=== PATIENT | male | born 1950 | race Caucasian/White ===

== ENCOUNTER 2023-05-28 14:27 | Outpatient (REF) | payer MEDICARE, OTHER, SELFPAY ==
[2023-05-28 19:10] LABS: Alanine Aminotransferase 9 U/L (0-40); Albumin Level 4.3 g/dL (3.5-5.0); Alkaline Phosphatase 77 U/L (39-117); Anion Gap 15 (12-20); Aspartate Amino Transferase 16 U/L (5-37); Bilirubin Direct 0.2 mg/dL (0.0-0.5); Bilirubin Total 0.8 mg/dL (0.0-1.0); Blood Urea Nitrogen 17 mg/dL (9-16); Calcium 9.3 mg/dL (8.4-10.2); Carbon Dioxide 23 mmol/L (22-29); Chloride 107 mmol/L (96-108); Cholesterol 198 mg/dL (<200); Estimated Glomerular Filt Rate > 60; Glucose Random 63 mg/dL (60-115); HDL Cholesterol 57 mg/dL (>40); LDL Cholesterol Calculated 129 mg/dL (<100); Potassium 3.8 mmol/L (3.3-5.1); Sodium 141 mmol/L (135-145); Total Protein 7.2 g/dL (6.5-8.0); Triglycerides 62 mg/dL (<150)
[2023-05-28 19:18] LABS: Thyroid Stimulating Hormone 1.42 uIU/mL (0.32-4.0)
[2023-06-02 13:28] LABS: HIV RNA PCR Qn Copies Not Detected Copies/mL; HIV RNA PCR Qn Log Copies Not Detected Log cps/mL
== END 2023-05-28 14:28 | disposition home or self-care (01) ==
LOC: HO.CHCLDS 14:27
PROVIDERS: Visit Provider Internal Medicine
DX: Z00.00 Encounter for general adult medical examination without abnormal findings (principal); J02.8 Acute pharyngitis due to other specified organisms
CPT/HCPCS: 36415; 80048; 80061; 80076; 84443; 87536; 87900

== ENCOUNTER 2024-05-31 15:39 | Outpatient (REF) | payer MEDICARE, OTHER, SELFPAY ==
[2024-05-31 17:56] LABS: MANUAL DIFF FLAG NO
[2024-05-31 18:19] LABS: Basophils Absolute Auto 0.1 X10*3/uL (0.0-0.2); Basophils Percent Auto 1.3 % (0-2); Eosinophils Absolute Auto 0.2 X10*3/uL (0.0-0.4); Eosinophils Percent Auto 3.4 % (0-4); Hematocrit 38.1 % (42.0-52.0); Hemoglobin 12.8 g/dl (14.0-18.0); Imm Gran Abs Auto 0.02 X10*3/uL (0.00-0.03); Imm Gran Pct Auto 0.4 % (0.0-0.4); Lymphocytes Absolute Auto 1.5 X10*3/uL (1.2-4.9); Lymphocytes Percent Auto 27.5 % (20-40); Mean Corpuscular HGB Conc 33.6 g/dl (31.0-36.0); Mean Corpuscular Hemoglobin 32.1 pg (27.0-33.0); Mean Corpuscular Volume 95.5 fL (80.0-98.0); Mean Platelet Volume 11.8 fL (9.4-12.4); Monocytes Absolute Auto 0.4 X10*3/uL (0.1-1.2); Monocytes Percent Auto 7.7 % (2-11); Neutrophils Absolute Auto 3.3 x10*3/uL (2.0-8.3); Neutrophils Percent Auto 59.7 % (45-73); Platelet Count 218 X10*3/uL (160-400); Red Blood Count 3.99 X10*6/uL (4.60-5.80); Red Cell Distribution Width 13.2 % (11.0-16.0); White Blood Count 5.6 X10*3/uL (4.8-10.8)
[2024-06-01 04:28] LABS: HIV AB/AG Nonreactive (Nonreactive); HIV Num 1 0.06 S/CO (0.00-0.99)
== END 2024-05-31 15:40 | disposition home or self-care (01) ==
LOC: HO.CHCLDS 15:39
PROVIDERS: Visit Provider Internal Medicine
DX: R63.4 Abnormal weight loss (principal)
CPT/HCPCS: 36415; 84443; 85025; 87389

== ENCOUNTER 2024-07-13 13:37 | Outpatient (REF) | payer MEDICARE, OTHER, SELFPAY ==
[2024-07-13 18:03] LABS: Alanine Aminotransferase 10 U/L (0-40); Albumin Level 4.4 g/dL (3.5-5.0); Alkaline Phosphatase 65 U/L (39-117); Anion Gap 12 (12-20); Aspartate Amino Transferase 16 U/L (5-37); Bilirubin Total 0.8 mg/dL (0.0-1.0); Blood Urea Nitrogen 20 mg/dL (9-16); Calcium 9.7 mg/dL (8.4-10.2); Carbon Dioxide 29 mmol/L (22-29); Chloride 104 mmol/L (96-108); Estimated Glomerular Filt Rate > 60; Glucose Random 97 mg/dL (60-115); Potassium 4.3 mmol/L (3.3-5.1); Sodium 141 mmol/L (135-145); Total Protein 7.2 g/dL (6.5-8.0)
[2024-07-14 08:28] LABS: ~HepC Num1 15.37 S/CO (0.00-0.79); ~Hepatitis C Antibody Reactive (Nonreactive)
[2024-07-20 13:29] LABS: HCV Log PCR <1.18 NOT DETECTED Log IU/mL (NOT DETECTED); HepC Viral Load <15 NOT DETECTED IU/mL (NOT DETECTED)
== END 2024-07-13 13:38 | disposition home or self-care (01) ==
LOC: HO.CHCLNP 13:37
PROVIDERS: Visit Provider Internal Medicine
DX: R63.4 Abnormal weight loss (principal); Z95.0 Presence of cardiac pacemaker; R63.0 Anorexia
CPT/HCPCS: 36415; 80053; 86803; 87338; 87522

== ENCOUNTER 2024-11-24 11:20 | Outpatient (REF) | payer MEDICARE, SELFPAY ==
--- OUTSIDE RECORDS SUMMARY | 2024-11-24 12:27 | XMS_ITS | Clinical Summary ---
Author Organization [facility] [place] [address] Care Team Providers Care Agricultural Service Worker Name Role Phone Unavailable Primary Care Provider Unavailabl e Social History Tobacco Use Types Packs/Day Years Used Date Smoking Tobacco: Never Assessed Sex and Gender Information Value Date Recorded Sex Assigned at Not on file Legal Sex Male 2:10 PM EDT Gender Identity Not on file Sexual Orientation Not on file Plan of Treatment Health Maintenance Due Date Last Done Comments DTaP,Tdap,and Td Vaccines (1 - Tdap) 1967 Pneumococcal Vaccine: 50+ Ye ars (1 of 1 - PCV) 1998 Zoster Vaccines (1 of 2) 1998 RSV Immunization Patients 60 + Years Old (1 - 1-dose 75+ series) 2023 COVID-19 Vaccine (2023-2 5 season) 2024 Influenza Vaccine (#1) 2024 Cholesterol Screening (Lipid Panel) 08/29/2024 Depression Screening 08/29/2024 Falls Risk Assessment 08/29/2024 Hepatitis C Screening 08/29/2024 Social Influencers of Health Screening 08/29/2024 HIB Vaccines Aged Out No longer eligi ble based on patient's age to complete this topic HPV Vaccines Aged Out No longer eligi ble based on patient's age to complete this topic Hepatitis A Vaccines Aged Out No long er eligible based on patient's age to complete this topic Hepatitis B Vaccines Aged Out No long er eligible based on patient's age to complete this topic IPV Vaccines Aged Out No longer eligi ble based on patient's age to complete this topic MMR Vaccines Aged Out No longer eligi ble based on patient's age to complete this topic Meningococcal ACWY Vaccine Aged Out N o longer eligible based on patient's age to complete this topic Meningococcal B Vacine Aged Out No lo nger eligible based on patient's age to complete this topic RSV Immunization Patients Un annette 20 months Aged Out No longer eligible b ased on patient's age to complete this topic Varicella Vaccines Aged Out No longer eligible based on patient's age to complete this topic
--- OUTSIDE RECORDS SUMMARY | 2024-11-24 12:27 | XMS_ITS | Encounter Summary ---
Author Organization [employer] Address [address] [facility] 7t [place] [address] Care Team Providers Care Courseware Developer Name Role Phone Tereza Wood MD Primary Care Provider [phone] Encounter Details Date Type Department Care Team (Latest Contact Info) Description 10/26/2024 Travel Social History Tobacco Use Types Packs/Day Years Used Date Smoking Tobacco: Never Smokeless Tobacco: Never Alcohol Use Standard Drinks/Week Comments Never 0 (1 standard drink = 0.6 oz pur e alcohol) Depression Answer Date Recorded Patient Health Questionnaire-9 Score 6 05/29/2024 Patient Health Questionnaire-9 Score 6 05/29/2024 Last PHQ-9: Questionnaire Data Not on file 0 05/29/2024 Housing Stability Answer Date Recorded What is your housing situation today? I have manjinder kaba 10/26/[address] you li ve. Do you have problems with any of the following? None of the above 10/26/2024 Food Insecurity Answer Date Recorded Within the past 12 months, y ou worried that your food would run out before you got money to buy more: Never True 10/26/2024 Within the past 12 months,th e food you bought just didn't last and you didn't have enough money to get more: Never True Transportation Answer Date Recorded In the past 12 months, has l ack of transportation kept you from medical appts, meetings, work or from getting things needed for daily living? No 10/26/2024 Utilities Answer Date Recorded In the past 12 months, has t he electric, gas, oil or water company threatened to shut off services in your home? No 10/26/2024 Depression Answer Date Recorded Patient Health Questionnaire-2 Score 2 05/29/2024 Internet Access Answer Date Recorded Internet Access Q1 Yes 10/26/2024 Internet Access Q2 Not on file 10/26/2024 Sex and Gender Information Value Date Recorded Sex Assigned at Male 08/03/2022 10:28 AM EDT Legal Sex Male 10:28 AM EDT Gender Identity Male 08/03/2022 10:28 AM EDT Sexual Orientation Straight 08/03/2022 10 :28 AM EDT documented as of this encounter Plan of Treatment Not on file documented as of this encounter Visit Diagnoses Not on filedocumented in this encounter Additional Health Concerns Assessment Noted Time PHQ-9 Depression Total Score: 6 05/29/20 24 3:03 PM EDT documented as of this encounter Care Teams Courseware Developer Relationship Specialty Start Date End Date Tereza Wood MD [address] [place] [phone] PCP - General Internal Medicine 06/07/15 documented as of this encounter
--- OUTSIDE RECORDS SUMMARY | 2024-11-24 12:27 | XMS_ITS | Encounter Summary ---
Author Organization [employer] Address [address] [facility] 7 [place] [address] Care Team Providers Care Drop Pit Worker Name Role Phone Tereza Wood MD Primary Care Provider [phone] Encounter Details Date Type Department Care Team ([facility] st Contact Info) Description 07/19/2023 Orders Only [facility] MED & PEDS [address] [place], [place] [phone] Tereza Wood MD [address] [place], [place] [phone] Social History Tobacco Use Types Packs/Day Years Used Date Smoking Tobacco: Never Smokeless Tobacco: Never Depression Answer Date Recorded Patient Health Questionnaire-9 Score 0 04/22/2023 Housing Stability Answer Date Recorded What is your housing situation today? I have manjinder kaba 07/19/[address] you li ve. Do you have problems with any of the following? None of the above 07/19/2023 Food Insecurity Answer Date Recorded Within the past 12 months, y ou worried that your food would run out before you got money to buy more: Never True 07/19/2023 Within the past 12 months,th e food you bought just didn't last and you didn't have enough money to get more: Never True Transportation Answer Date Recorded In the past 12 months, has l ack of transportation kept you from medical appts, meetings, work or from getting things needed for daily living? No 07/19/2023 Utilities Answer Date Recorded In the past 12 months, has t he electric, gas, oil or water company threatened to shut off services in your home? No 07/19/2023 Depression Answer Date Recorded Patient Health Questionnaire-2 Score 0 04/22/2023 Sex and Gender Information Value Date Recorded [...] Assessment Noted Time PHQ-9 Depression Total Score: 0 04/22/20 23 3:45 PM EDT documented as of this encounter Care Teams Drop Pit Worker Relationship Specialty Start Date End Date Tereza Wood MD [address] [place] [phone] PCP - General Internal Medicine 06/07/15 documented as of this encounter
--- OUTSIDE RECORDS SUMMARY | 2024-11-24 12:27 | XMS_ITS | Encounter Summary ---
Author Organization [employer] Address [address] [facility] 7 [place] [address] Care Team Providers Care Counseling Director Name Role Phone Tereza Wood MD Primary Care Provider [phone] Encounter Details Date Type Department Care Team (Late st Contact Info) Description 08/02/2023 Abstract [facility] MEDICINE [address] [place] [address] Tereza Wood MD [address] [place], [place] [phone] Social History Tobacco Use Types Packs/Day Years [...] on file documented as of this encounter Procedures Procedure Name Priority Date/Time Associated Diagnosis Comments COLONOSCOPY Routine 10/24/2015 documented in this encounter Results * Hm Colonoscopy (10/24/2015) Colonoscopy Normal Normal Narrative Tabby Collins - 10/24/2015 Recommended 10 year follow up us Historical Provider HEALTH MAINTENANCE Final Result documented in this encounter Visit Diagnoses Not on filedocumented in this encounter Additional Health Concerns Assessment Noted Time PHQ-9 Depression Total Score: 0 04/22/20 23 3:45 PM EDT documented as of this encounter Care Teams Counseling Director Relationship Specialty Start Date End Date Tereza Wood MD [address] [place] [phone] PCP - General Internal Medicine 06/07/15 documented as of this encounter
--- OUTSIDE RECORDS SUMMARY | 2024-11-24 12:27 | XMS_ITS | Encounter Summary ---
Author Organization [employer] Address [address] [facility] 7t [place] [address] Care Team Providers Care Tile Inspector Name Role Phone Tereza Wood MD Primary Care Provider [phone] Encounter Details Date Type Department Care Team ([facility] st Contact Info) Description 06/06/2024 Orders Only [facility] MED & PEDS [address] [place], [place] [phone] Tereza Wood MD [address] [place] [address] Microcytic anemia (Primary Dx) Social History Tobacco Use Types Packs/Day Years [...] Recorded Patient Health Questionnaire-2 Score 2 05/29/2024 Sex and Gender Information Value Date Recorded Sex Assigned at Male 08/03/2022 10:28 AM EDT Legal Sex Male 10:28 AM EDT Gender Identity Male 08/03/2022 10:28 AM EDT Sexual Orientation Straight 08/03/2022 10 :28 AM EDT documented as of this encounter Plan of Treatment Scheduled Orders Name Type Priority Associated Diagnoses Orde r Schedule Iron And Total Iron Binding Capacity Lab Routine Microcytic anemia Expected: 06/06/2024, Expires: 06/06/2025 Ferritin Lab Routine Microcytic anemia Expected: 06/06/2024, Expires: 06/06/2025 Reticulocyte Count Lab Routine Microcytic anemia Expected: 06/06/2024, Expires: 06/06/2025 documented as of this encounter Visit Diagnoses Diagnosis Microcytic anemia- Primary Unspecified iron deficiency anemia documented in this encounter Additional Health Concerns Assessment Noted Time PHQ-9 Depression Total Score: 6 05/29/20 24 3:03 PM EDT documented as of this encounter Care Teams Tile Inspector Relationship Specialty Start Date End Date Tereza Wood MD [address] [place] [address] PCP - General Internal Medicine 06/07/15 documented as of this encounter
--- OUTSIDE RECORDS SUMMARY | 2024-11-24 12:27 | XMS_ITS | Clinical Summary ---
Author Organization [employer] Address [address] [facility] 7t [place] [address] Care Team Providers Care Case Resolution Specialist Name Role Phone Tereza Wood MD Primary Care Provider [phone] Allergies Active Allergy Reactions Criticality Noted Date Comments Pentazocine 04/09/2023 Medications * This document contains information received from the source organization and may not represent a complete record from that organization. methadone (Dolophine) 10 MG tablet Take 15 mg by mouth. 11/05/19 21 Active Blood Pressure kitIndications:[place] vated BP without diagnosis of hypertension To check the BP daily 1 kit 07/13/20 24 Active mirtazapine (Remeron SolTab) 15 MG disintegrating tabletIndications: Poor appetite,Current mild episode of major depressive disorder without prior episode (CMS/HCC) Take 1 tablet (15 mg) by mouth at bedtime. 30 tablet 11 10/26/19 25 026 Active mirtazapine (Remeron SolTab) 15 MG disintegrating tabletIndications: Poor appetite,Current mild episode of major depressive disorder without prior episode (CMS/HCC) Take 1 tablet (15 mg) by mouth at bedtime. 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 Encounters Date Type Department Care Team Description 11/24/2024 11:15 AM EST Clinical Support [facility] MED & PEDS [address] [place] [address] 11/24/2024 Travel 10/26/2024 2:30 PM EST Office Visit [facility] MED & PEDS [address] [facility] [place] [address] Tereza Wood MD Poor appetite (Primary Dx); Elevated BP without diagnosis of hypertension; Ganglion cyst of finger; Poor appetite; Current mild episode of major depressive disorder without prior episode ([facility]/HCC) 10/26/2024 Travel 08/28/2024 Telephone [facility] MED & PEDS [address] [place] [address] Tereza Wood MD No Show from Last 3 Months Immunizations Name Administration Dates Next Due Pneumococcal Conjugate PCV 20 05/29/2024 Family History Medical History Relation Name Comments Diabetes type II Brother Diabetes type II Mother Relation Name Status Comments Brother Mother Social History Tobacco Use Types Packs/Day Years Used Date Smoking Tobacco: Never Smokeless Tobacco: Never Tobacco Cessation:Counseling Given: No Alcohol Use Standard Drinks/Week Comments Never 0 (1 standard drink = 0.6 oz pur e alcohol) Depression Answer Date Recorded Patient Health Questionnaire-9 Score 6 05/29/2024 Patient Health Questionnaire-9 Score 6 05/29/2024 Last PHQ-9: Questionnaire Data Not on file 0 05/29/2024 Housing Stability Answer Date Recorded What is your housing situation today? I have manjinderchad kaba 10/26/[address] you [...] Orientation Straight 08/03/2022 10 :28 AM EDT Last Filed Vital Signs Vital Sign Reading Time Taken Comments Blood Pressure 152/88 11/24/2024 11:28 AM EST Pulse 75 10/26/2024 2:41 PM EST Temperature 36.7 ??C (98 ??F) 10/26/2024 2:41 PM EST Respiratory Rate 20 10/26/2024 2:41 PM EST Oxygen Saturation 98% 10/26/2024 2:41 PM EST Inhaled Oxygen Concentration - - Weight 54 kg (119 lb) 10/26/2024 2:41 PM EST Height 171 cm (5' 7.32 ) 10/26/2024 2:41 PM EST Body Mass Index 18.46 10/26/2024 2:41 PM EST Plan of Treatment Health Maintenance Due Date Last Done Comments Zoster Vaccines (1 of 2) 1998 RSV Patients and Patients Aged 60 years or older (1 - 1-dose 75+ series) 2023 COVID-19 Vaccine ( - 2023-2 5 season) 2024 03/04/2021, 02/10/2021 Influenza Vaccine (#1) 2024 Depression Screening 05/29/2025 05/29/2024, 05/29/2024 Alcohol/Substance Use Screening 10/26/2025 10/26/2024 SDOH Screening 10/26/2025 10/26/2024 Lipid Panel 05/28/2028 05/28/2023 DTaP/Tdap/Td Vaccines (3 - T d or Tdap) 05/15/2032 05/15/2022, 10/12/2014 Colonoscopy Discontinued 10/24/2015 Colorectal Cancer Screening Discontinued Pneumococcal Vaccine: 50+ Years Completed 05/29/2024 Hepatitis C Screening Completed 07/13/2024 , 07/13/2024 Tobacco Screening Discontinued 07/13/2024 CT Colonography Discontinued FIT DNA/Cologuard Discontinued FIT Discontinued FOBT Discontinued HIB Vaccines Aged Out No longer eligi [...] patient's age to complete this topic Meningococcal Vaccine Aged Out No evelio sergey eligible based on patient's age to complete this topic RSV under 20 months Aged Out No longe r eligible based on patient's age to complete this topic Rotavirus Vaccines Aged Out No longer eligible based on patient's age to complete this topic Sigmoidoscopy Discontinued Procedures Procedure Name Priority Date/Time Associated Diagnosis Comments HEPATITIS C AB W/REFL TO HCV RNA, QN, PCR Routine 07/13/2024 2:26 PM EDT Cardiac pacemaker in situ Weight loss, unintentional Poor appetite LIPID PANEL, STANDARD Routine 05/28/2023 2:37 PM EDT Annual physical exam COLONOSCOPY Routine 10/24/2015 from Last 3 Months or Most Recently Relevant to Health Maintenance Results * (ABNORMAL) Hepatitis C Antibody with Reflex to HCV, RNA, Quantitative, Real- Time PCR (07/13/2024 2:26 PM EDT) Hepatitis C Antibody Reactive( A) Nonreactive [facility] Comment:Presumptive evidence of antibodies to HCV. Blood Venous blood specimen / Unknown 07/13/2024 2:26 PM EDT 07/13/2024 5:37 PM EDT us Tereza Wood MD LAB BLOOD ORDERABLES Final Result [facility] [address] [place] [phone] * (ABNORMAL) Lipid Panel, Standard (05/28/2023 2:37 PM EDT) Triglycerides 62 <150 mg/dL [facility] Comment:Desirable Triglyceri de: less than 150 mg/dLBorderline High Triglyceride 150-199 mg/dLHigh Triglyceride: 200-499 mg/dLVery High Triglyceride: greater than or equal to 5OO mg/dL Cholesterol 198 <200 mg/dL [facility] Comment:Desirable Cholestero l: less than 200 mg/dLBorderline High Cholesterol: 200-239 mg/dLHigh Cholesterol: greater than 239 mg/dL LDL Cholesterol Calculated 129(H) <100 mg/dL [facility] Comment:Desirable LDL: less than 100 mg/dLNear Optimal/Above Optimal LDL: 110- 129 mg/dLBorderline High LDL: 130-159 mg/dLHigh LDL: 160-189 mg/dLVery High LDL: greater than or equal to 190 mg/dL HDL Cholesterol 57 >40 mg/dL [facility] Comment:Desirable HDL: great er than 40 mg/dL Note: This HDL assay may give artificially low results in patients with liver disease. Blood Venous blood specimen / Unknown 05/28/2023 2:37 PM EDT 05/28/2023 6:07 PM EDT Tereza Wood MD LAB BLOOD ORDERABLES Final Result [facility] [address] [place] [phone] * Colonoscopy (10/24/2015) Colonoscopy Normal Normal Narrative Karina Tabby - 10/24/2015 Recommended 10 year follow up Historical Provider HEALTH MAINTENANCE Final Result from Last 3 Months or Most Recently Relevant to Health Maintenance Insurance [facility] MEDICARE ADVANTAGE [facility] FULL Care Teams Case Resolution Specialist Relationship Specialty Start Date End Date Tereza Wood MD [address] [place] [phone] PCP - General Internal Medicine 06/07/15
--- OUTSIDE RECORDS SUMMARY | 2024-11-24 12:27 | XMS_ITS | Encounter Summary ---
Author Organization [employer] Address [address] [facility] 7t [place] [address] Care Team Providers Care Administrative Specialist Name Role Phone Tereza Wood MD Primary Care Provider [phone] Encounter Details Date Type Department Care Team (Latest Contact Info) Description 11/24/2024 Travel Social History Tobacco Use Types Packs/Day [...] documented as of this encounter Care Teams Administrative Specialist Relationship Specialty Start Date End Date Tereza Wood MD [address] [place] [phone] PCP - General Internal Medicine 06/07/15 documented as of this encounter
--- OUTSIDE RECORDS SUMMARY | 2024-11-24 12:27 | XMS_ITS | Continuity of Care Document ---
Author Organization [facility] Address [address] [place] [phone]- Care Team Providers Care Road Repairer Name Role Phone Tereza Wood MD Primary Care Physician [phone] Encounter [facility] Date(s): 10/06/24 - 11/05/24 [facility] [address] [place] [phone]- Attending Physician: Aleks Alvarado Admitting Physician: Aleks Alvarado Referring Physician: Aleks Alvarado Encounter Type: Triage Allergies, Adverse Reactions, Alerts Substance Criticality Severity Reaction Reaction Severity Status Talwin Active Immunizations Given and Recorded Vaccine Date Status Refusal Reason tetanus/diphtheria/pertussis, acel(Tdap) 05/15/22 Given tetanus/diphtheria/pertussis, acel(Tdap) 10/12/14 Given Medications methadone 10 mg oral tablet 5 tablet = 50 mg, By Mouth, Daily at bedtime, 0 Refills, Maintenance, 11/05/20 4:13:00 AM EST, Tablet, Partial fill upon patient request if the prescription is for a schedule II opioid drug. Start Date: 11/05/20 Status: Ordered Repeat number: 1 Patient Care team information Care Team Personnel Name: Tereza Wood MD Position: [facility] Outreach Member Role: PCP Address: [address] [place] [phone]- Telecom: Name: Yuliana Vaughn RN Position: S RN Supv Member Role: Primary Care Nurse Name: Namita Mars RN Position: S RN Member Role: Primary Care Nurse Name: Kelsea Toledo RN Position: S RN Member Role: Primary Care Nurse Care Team Related Persons Name: ELBERT HENSLEY Insurance Providers Guarantor name: Health Plan Information #: 1 Payer: MEDICARE PART B OUTPT Member Number: NA Policy Number: NA Group Number: NA Health Plan Information #: 2 Payer: [facility] Member Number: NA Policy Number: NA Group Number: NA
--- OUTSIDE RECORDS SUMMARY | 2024-11-24 12:27 | XMS_ITS | Encounter Summary ---
Author Organization [employer] [facility] Address [address] [place] [address] Care Team Providers Care Pebble Mill Operator Name Role Phone Unavailable Primary Care Provider Unavailabl e Encounter Details Date Type Department Care Team (Late st Contact Info) Description 08/02/2024 2:09 PM EDT Hospital Encounter [facility] HISTORIC ENCOUNTERS [facility]AST[facility] CONVERSION ONLY Yadiel Wood MD [address] [place], [place] [phone] Social History Tobacco Use Types Packs/Day Years Used Date Smoking Tobacco: Never Assessed Sex and Gender Information Value Date Recorded Sex Assigned at Not on file Legal Sex Male 2:10 PM EDT Gender Identity Not on file Sexual Orientation Not on file documented as of this encounter Plan of Treatment Not on file documented as of this encounter Procedures Procedure Name Priority Date/Time Associated Diagnosis Comments CHEST ROUTINE 2 VIEWS Routine 08/02/2024 5:20 PM EDT documented in this encounter Results * CHEST ROUTINE 2 VIEWS (08/02/2024 5:20 PM EDT) Anatomical Region Laterality Modality Radiographic Shira ging 08/02/2024 2:13 PM EDT Narrative 08/02/2024 5:20 PM EDT [facility] Diagnostic Imaging Department [address] [place] [id number] Patient: ??MAXIMUS HENSLEY ?/Age/Sex: 1950 - 73 - M Unit#: ??[id number] ? Location/Status: ??SPDIGEN/REG CLI ? Mnemonic/Ordering Site: ??CHESTXR/SPDI Ordering Physician: ??YADIEL WOOD DR Chest Routine 2 Views - 08/02/24 - 8858 Report Status:Signed History: Weight loss. Hypertension. Comparison: 05/09/06 Findings: PA and lateral views. The cardiac silhouette remains normal in size. Atherosclerotic calcification and mild tortuosity the thoracic aorta are noted. A left subclavian transvenous pacemaker is present, with leads terminating in the expected locations of the right atrium and ventricle. This is new from the previous study. The ritchie are not enlarged. The pulmonary vascularity is within normal limits. The lungs are clear. No sizable pleural fluid collection is seen. Thoracic vertebral endplate spurring is present. Impression: No active pulmonary process identified. Dictating Physician: ??IMAN MALONEY MD Electronically Signed by: ??IMAN MALONEY MD Dic Date/Time: ??08/02/24 1719 Sign date/Time: ??08/02/24 1720 Procedure Note Iman Maloney MD - 08/05/2024 [facility] Diagnostic Imaging Department [address] [place] [phone] Patient: MAXIMUS HENSLEY /Age/Sex: 1950 - 73 - M Unit#: [id number] Location/Status: SPDIGEN/REG CLI Mnemonic/Ordering Site: CHESTXR/SPDI Ordering Physician: YADIEL WOOD DR Chest Routine 2 Views - 08/02/24 - 6025 Report Status:Signed History: Weight loss. Hypertension. Comparison: 05/09/06 Findings: PA and lateral views. The cardiac silhouette remains normal in size. Atherosclerotic calcification and mild tortuosity the thoracic aorta arenoted. A left subclavian transvenous pacemaker is present, with leads terminatingin the expected locations of the right atrium and ventricle. This is new fromthe previous study. The ritchie are not enlarged. The pulmonary vascularity is within normallimits. The lungs are clear. No sizable pleural fluid collection is seen. Thoracic vertebral endplate spurring is present. Impression: No active pulmonary process identified. Dictating Physician: IMAN MALONEY MD Electronically Signed by: IMAN MALONEY MD Dic Date/Time: 08/02/24 171 Sign date/Time: 08/02/24 172 Yadiel Wood MD IMG XR PROCEDURES Final R esult documented in this encounter Visit Diagnoses Not on filedocumented in this encounter
--- OUTSIDE RECORDS SUMMARY | 2024-11-24 12:27 | XMS_ITS | Encounter Summary ---
Author Organization [employer] Address [address] [facility] [address] [place] [address] Care Team Providers Care Middleware Systems Architect Name Role Phone Tereza Wood MD Primary Care Provider [phone] Encounter Details Date Type Department Care Team ([facility] st Contact Info) Description 11/24/2024 11:15 AM EST Clinical Support [facility] [address] [place] [address] Social History Tobacco Use Types Packs/Day Years [...] AM EDT documented as of this encounter Last Filed Vital Signs Vital Sign Reading Time Taken Comments Blood Pressure 152/88 11/24/2024 11:28 AM EST Pulse - - Temperature - - Respiratory Rate - - Oxygen Saturation - - Inhaled Oxygen Concentration - - Weight - - Height - - Body Mass Index - - documented in this encounter Plan of Treatment Not on file documented as of this encounter Visit Diagnoses Not on filedocumented in this encounter Additional Health Concerns Assessment Noted Time PHQ-9 Depression Total Score: 6 05/29/20 24 3:03 PM EDT documented as of this encounter Care Teams Middleware Systems Architect Relationship Specialty Start Date End Date Tereza Wood MD [address] [place] [id number] PCP - General Internal Medicine 06/07/15 documented as of this encounter
--- OUTSIDE RECORDS SUMMARY | 2024-11-24 12:27 | XMS_ITS | Encounter Summary ---
Author Organization [employer] Address [address] [facility] [address] [place] [address] Care Team Providers Care Log Peeler Name Role Phone Tereza Wood MD Primary Care Provider [phone] Encounter Details Date Type Department Care Team ([facility] st Contact Info) Description 10/26/2024 2:30 PM EST Office Visit [facility] [address] [place], [place] [id number] Tereza Wood MD [address] [place] [address] Poor appetite (Primary Dx); Elevated BP without diagnosis of hypertension; Ganglion cyst of finger; Poor appetite; Current mild episode of major depressive disorder without prior episode (CMS/HCC) Social History Tobacco Use Types Packs/Day Years [...] your housing situation today? I have manjinder sendy 10/26/[address] you li [...] Sign Reading Time Taken Comments Blood Pressure 155/81 10/26/2024 2:41 PM EST Pulse 75 10/26/2024 2:41 PM EST Temperature 36.7 ??C (98 ??F) 10/26/2024 2:41 PM EST Respiratory Rate 20 10/26/2024 2:41 PM EST Oxygen Saturation 98% 10/26/2024 2:41 PM EST Inhaled Oxygen Concentration - - Weight 54 kg (119 lb) 10/26/2024 2:41 PM EST Height 171 cm (5' 7.32 ) 10/26/2024 2:41 PM EST Body Mass Index 18.46 10/26/2024 2:41 PM EST documented in this encounter Progress Notes * Tereza Wood MD - 10/26/2024 2:30 PM EST Subjective Patient ID: Clinton Garcia is a 74 y.o. male who presents for No chief complaint on file.. HPI Here for follow up; Did not start checking his BP at home because he travelled to [place] and left the BP monitor there H/o insomnia. Has been off mirtazapine. Pt did not call for a refill. H/o Poor appetite. Pt needs to resume the mirtazapine as prescribed. 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 [DISCONTINUED] mirtazapine (Remeron SolTab) 15 MG disintegrating tablet Take 1 tablet (15 mg) by mouth at bedtime. 30 tablet 0 No current facility-administered medications on file prior to visit. Allergies Allergen Reactions Pentazocine Review of Systems Constitutional: Negative for activity change, appetite change, chills and diaphoresis. Respiratory: Negative for cough, choking, chest tightness and shortness of breath. Gastrointestinal: Negative for abdominal pain and anal bleeding. Musculoskeletal: Negative for arthralgias, back pain and gait problem. Objective Physical Exam Constitutional: General: He is not in acute distress. Appearance: Normal appearance. He is not ill-appearing, toxic-appearing or diaphoretic. Cardiovascular: Rate and Rhythm: Normal rate. Pulmonary: Effort: Pulmonary effort is normal. Abdominal: General: There is no distension. Palpations: Abdomen is soft. There is no mass. Tenderness: There is no abdominal tenderness. Hernia: No hernia is present. Skin: General: Skin is warm. Neurological: General: No focal deficit present. Mental Status: He is alert. Assessment/Plan Diagnoses and all orders for this visit: Poor appetite Comments: Continue w/ mirtazapine. Orders: - mirtazapine (Remeron SolTab) 15 MG disintegrating tablet; Take 1 tablet (15 mg) by mouth at bedtime. Elevated BP without diagnosis of hypertension Comments: BP is elevated Pt did not check his BP at home DASH recommended RTC in 1 month Ganglion cyst of finger Comments: NOt interested in getting surgery. Poor appetite - mirtazapine (Remeron SolTab) 15 MG disintegrating tablet; Take 1 tablet (15 mg) by mouth at bedtime. Current mild episode of major depressive disorder without prior episode (CMS/HCC) - mirtazapine (Remeron SolTab) 15 MG disintegrating tablet; Take 1 tablet (15 mg) by mouth at bedtime. documented in this encounter Plan of Treatment Not on file documented as of this encounter Visit Diagnoses Diagnosis Poor appetite- Primary Anorexia Elevated BP without diagnosis of hypertension Ganglion cyst of finger Current mild episode of major depressive disorder without prior episode (CMS/HCC) documented in this encounter Additional Health Concerns Assessment Noted Time PHQ-9 Depression Total Score: 6 05/29/20 24 3:03 PM EDT documented as of this encounter Care Teams Log Peeler Relationship Specialty Start Date End Date Tereza Wood MD [address] [place] [id number] PCP - General Internal Medicine 06/07/15 documented as of this encounter
[2024-11-24 14:08] LABS: Immature Retic Fraction 9.6 % (2.3-13.4); Retic HGB Equivalent 33.1 pg (30.0-35.0); Reticulocyte Percent 1.4 % (0.5-1.8); Reticulocytes Absolute 0.062 X10*6/uL (0.026-0.095)
[2024-11-24 14:31] LABS: Iron 133 mcg/dL (45-160); Percent Iron Saturation 49 % (15-50); Total Iron Binding Capacity 274 mcg/dL (228-428); Unsaturated Iron Binding 141 ug/dL
[2024-11-24 14:37] LABS: Ferritin 130 ng/mL (20-250)
== END 2024-11-24 11:21 | disposition home or self-care (01) ==
LOC: HO.CHCLDS 11:20
PROVIDERS: Visit Provider Internal Medicine
DX: D50.9 Iron deficiency anemia, unspecified (principal)
CPT/HCPCS: 36415; 82728; 83540; 85045